=== PATIENT | male | born 1995 | race Caucasian/White ===

== ENCOUNTER 2019-08-26 15:39 | Emergency (ER) | payer MEDICAID ==
[~2019-08-26] VITALS: Ht 175.3 cm; Wt 81.2 kg
[2019-08-26 16:00] VITALS: BP_SYST 125
--- NOTE | 2019-08-26 16:08 | NUR ---
Patient triaged and placed in waiting room. VSS and patient appears in no acute distress at this time. Accompanied by self, awaiting available bed, and MD notified of need for MSE.
--- NOTE | 2019-08-26 17:29 | NUR ---
Patient left without being seen.
== END 2019-08-26 17:29 | disposition left against medical advice (07) ==
LOC: SED 15:39
DX: H92.02 Otalgia, left ear (principal); Z53.21 Procedure and treatment not carried out due to patient leaving prior to being seen by health care provider